=== PATIENT | female | born 1940 | race American Indian/Alaskan Native ===

== ENCOUNTER 2019-05-17 08:15 | Day surgery (SDC) | payer MEDICARE, MEDICAID ==
[~2019-05-17] VITALS: Ht 160 cm; Wt 101.9 kg
[2019-05-17 08:45] VITALS: BP 148/89
[2019-05-17] MEDS ORDERED: normal saline 1000ml 1,000 ML IV PRN (08:45)
[2019-05-17] MEDS ORDERED: albumin 25% 100mL bottle x 1 IV PRN (08:45)
[2019-05-17] MEDS ORDERED: LACT10SO PO (09:02)
[2019-05-17] MEDS ORDERED: OMEP10CA5 PO (09:02)
[2019-05-17 09:15] VITALS: BP 157/69
[2019-05-17 09:30] VITALS: BP 144/70
[2019-05-17 09:38] VITALS: BP 148/72
[2019-05-17 09:50] VITALS: BP 143/74
== END 2019-05-17 10:00 | disposition home or self-care (01) ==
LOC: SSTAY O 08:15
PROVIDERS: ATTEND Radiology Diagnostic Radiology
DX: R18.8 Other ascites (principal); K74.60 Unspecified cirrhosis of liver; Z98.890 Other specified postprocedural states; Z90.721 Acquired absence of ovaries, unilateral; Z79.899 Other long term (current) drug therapy
CPT/HCPCS: 49083; C1729; J7030

== ENCOUNTER 2019-06-21 06:52 | Day surgery (SDC) | payer MEDICARE, MEDICAID ==
[~2019-06-21] VITALS: Ht 160 cm; Wt 103.5 kg
[2019-06-21] VITALS (9 sets, daily range): BP systolic 137–149; BP diastolic 66–82
[~2019-06-21 06:52] MED LIST: LACT10SO PO; OMEP10CA5 PO
[2019-06-21] MEDS ORDERED: albumin 25% 100mL bottle x 1 IV PRN (07:15)
[2019-06-21] MEDS ORDERED: normal saline 1000ml 1,000 ML IV PRN (07:15)
== END 2019-06-21 09:35 | disposition home or self-care (01) ==
LOC: SSTAY O 06:52
PROVIDERS: ATTEND Radiology Vascular & Interventional Radiology
DX: R18.8 Other ascites (principal); K74.60 Unspecified cirrhosis of liver
CPT/HCPCS: 49083; C1729; J7030

== ENCOUNTER 2019-07-22 06:33 | Day surgery (SDC) | payer MEDICARE, MEDICAID ==
[~2019-07-22] VITALS: Ht 160 cm; Wt 106.7 kg
[2019-07-22] MEDS ORDERED: normal saline 1000ml 1,000 ML IV PRN (07:00)
[2019-07-22] MEDS ORDERED: albumin 25% 100mL bottle x 1 IV PRN (07:00)
[2019-07-22 07:05] VITALS: BP 155/78
[2019-07-22 08:45] VITALS: BP 155/78
[2019-07-22 09:00] VITALS: BP 155/76
[2019-07-22 09:15] VITALS: BP 155/75
[2019-07-22 09:30] VITALS: BP 160/74
[2019-07-22 09:45] VITALS: BP 165/75
== END 2019-07-22 09:50 | disposition home or self-care (01) ==
LOC: SSTAY O 06:33
PROVIDERS: ATTEND Radiology Diagnostic Radiology
DX: R18.8 Other ascites (principal); K74.60 Unspecified cirrhosis of liver; Z86.19 Personal history of other infectious and parasitic diseases; Z90.721 Acquired absence of ovaries, unilateral
CPT/HCPCS: 49083; C1729; J7030